=== PATIENT | female | born 1965 | race Caucasian/White ===

== ENCOUNTER 2022-11-14 05:52 | Observation (INO) ==
--- NOTE | 2022-10-23 13:15 | PAT Medication Instructions ---
Medication Instructions Date of Service October 23, 2022 Home Medications diclofenac potassium 50 mg oral powder packet ([place]ambia) 50 mg PO DAILY PRN Migraine Headache estradiol 0.01% (0.1 mg/gram) vaginal cream 1 appful vaginal 2XWK levothyroxine 125 mcg tablet 125 mcg PO QAM meloxicam 15 mg tablet 15 mg PO HS venlafaxine 75 mg capsule,extended release 24 hr 75 mg PO HS ASK your surgeon for instructions meloxicam 15 mg tablet 15 mg PO HS diclofenac potassium 50 mg oral powder packet ([place]) 50 mg PO DAILY PRN Migraine Headache DO NOT take the morning of surgery estradiol 0.01% (0.1 mg/gram) vaginal cream 1 appful vaginal 2XWK Take morning of surgery With a small sip of water, OTHERWISE NOTHING TO EAT OR DRINK AFTER MIDNIGHT: levothyroxine 125 mcg tablet 125 mcg PO QAM Take evening before surgery venlafaxine 75 mg capsule,extended release 24 hr 75 mg PO HS Other Notes If you have any questions please call us at [phone] or [phone] or [phone] or [phone]
--- NOTE | 2022-10-30 11:53 | Anesthesiology Consultation ---
Date of Service October 30, 2022 Assessment & Plan (1) Encounter for pre-operative examination: - COVID screening: Per assessment on 10/30: No known COVID-19 positive contacts or current COVID-19 related symptoms. Travel screen negative. At surgeon discretion if preop Covid testing being done. - PCP visit (10/27/22): "Patient doing well and healthy.. Reviewed EKG, chest xray, and bloodwork. Cleared for surgery.. Supraventricular tachycardia.. Continue to monitor. Stable" Chart Review Chart Review: Acceptable Risk for Surgery and Patient seen in Pre Admission Testing Teaching & Discussion Pre-Anesthesia Teaching/Discussion Notes: Instructed NPO after midnight before surgery,except medications with 15 cc of water. Medication instructions provided according to the PAT guidelines. History Surgery Operation Date: 11/14/22 08:25 Proposed Procedures p Bilateral Total Knee Arthroplasty - Arsen Kearney DO Height/Weight Height: 5 ft 2 in Weight: 80.3 kg Allergies Allergy/AdvReac Type Severity Reaction Status Date / Time No Known Allergies Allergy Verified 10/20/22 09:32 Medications Home Medications Medication Instructions Recorded Confirmed Last Taken diclofenac potassium 50 mg oral 50 mg PO DAILY PRN Migraine 10/20/22 10/20/22 Unknown powder packet (Cambia) Headache estradiol 0.01% (0.1 mg/gram) 1 appful vaginal 2XWK 10/20/22 10/20/22 Unknown vaginal cream levothyroxine 125 mcg tablet 125 mcg PO QAM 10/20/22 10/20/22 Unknown meloxicam 15 mg tablet 15 mg PO HS 10/20/22 10/20/22 Unknown venlafaxine 75 mg capsule,extended 75 mg PO HS 10/20/22 10/20/22 Unknown release 24 hr Past Medical History Medical History Acute angle-closure glaucoma s/p iridotomy (Had "holes" to help with pressure) 1977 Arthritis H/O supraventricular tachycardia Remote hx s/p cardiac workup, no recent issues/palpitations History of kidney stones No surgical intervention needed History of neuropathy Toes (improved with surgery) Hot flashes reason for venlafaxine Hypothyroidism Migraine Sleep apnea mild, no device Exercise / Class Metabolic Activity II 4-5 Yardwork/Stairs/Walk up hill (one FS (no CP, no SOB)) Past Family History Family History Other No family history of adverse response to anesthesia Past Surgical History Surgical History H/O total thyroidectomy d/t thyroid goiter [place], bilateral repaired History of appendectomy History of bunionectomy R/L foot History of colonoscopy History of dilatation and curettage [place] teeth removed Past Anesthesia History No Hx of Anesthesia Complications and No Family Hx of Anesthesia Complications History of PONV No Hx of PONV and Hx of Motion Sickness (occasional) Social History Smoking Status: Never smoker Do You Dip or Chew Tobacco: No Hx Alcohol Use: Yes Alcohol type: wine alcohol intake frequency: a few times a month Hx Substance Use: No substance use type: does not use Physical Exam Vital Signs VITALS BP 111/71 P 80 TEMP 99.4 SP02 95%RA RESP 16 PHYSICAL Full cervical extension range of motion. Full TMJ range of motion. TMD 4 finger breaths Mallampati Score 2 Dentition: intact, crown (molar) Lungs: clear throughout to auscultation Cardiac: regular rate and rhythm, no murmurs noted Spine: normal Carotid arteries: negative bruit Extremities: no LE edema Lab Results Anesthesia Preop Results Results Anesthesia Widget: PT 10.5 Seconds (9.0-12.0) 10/30/22 PTT 26.1 Seconds (21.0-31.0) 10/30/22 INR 1.0 (0.9-1.1) 10/30/22 HA1c 5.8 % (4.5-5.6) H 10/30/22 Urine Color Yellow 10/30/22 Urine Appearance Clear (Clear) 10/30/22 Urine pH 7.0 (4.5-7.5) 10/30/22 Urine Specific [place] 1.013 (1.000-1.030) 10/30/22 Urine Protein Negative (Negative) 10/30/22 Urine Glucose (UA) Negative (Negative) 10/30/22 Urine Ketones Negative (Negative) 10/30/22 Urine Blood Negative (Negative) 10/30/22 Urine Nitrite Negative (Negative) 10/30/22 Urine Bilirubin Negative (Negative) 10/30/22 Urine Urobilinogen Negative (Negative) 10/30/22 Urine Leukocyte Esterase Negative (Negative) 10/30/22 Blood Type B Positive 10/30/22 Antibody Screen NEGATIVE 10/30/22 Testing Laboratory Results 10/19/22 WBC 5.69 H/H 13.2/40.9 PLATELETS 273 SODIUM 138 POTASSIUM 3.7 CHLORIDE 108 CO2 28.0 BUN 20.0 CREATININE 0.79 GLUCOSE 84 Electrocardiogram Date: 10/19/22 Sinus rhythm at 64 bpm. Possible LAE. Nonspecific ST/T wave abnormality. Chest X-Ray Date: 10/19/22 Top normal heart size with mildly tortuous thoracic aorta. Mild thoracic spine degenerative disc disease. No acute findings. Stress Test Date: 05/23/21 LVEF 65%. Exercise stress EKG is positive for ischemia, though at good workload of 10 METS. This has low sensitivity. SPECT perfusion imaging demonstrates no evidence of ischemia or infarct. PCP stress test review (05/25/21): "Stress test was normal. No concerns at this time." COVID-19 Risk Screen Screening Information COVID-19 Screen Date: 10/30/22 Exposure 21 Days Family/Household +COVID Last 21 Days: No Exposure 10 Days Any COVID Exposure Last 10 Days: No Symptoms Last 10 Days Experienced COVID Sx Last 10 Days: No + COVID 0-90 Days COVID + in Last 0-90 Days: No
--- NOTE | 2022-10-30 13:22 | History & Physical Report ---
Date of Service October 30, 2022 date of surgery: 11/14/22 Procedure: Bilateral Total Knee Arthroplasty Surgeon: Arsen Kearney Assessment & Plan (1) Degenerative arthritis of knee, bilateral: Plan: Risk and benefits of the procedure were discussed in detail, she would like to proceed with bilateral total knee replacements. Will place on Eliquis x1 month postop for DVT prophylaxis. Would recommend discharge home with home health physical therapy x2 to 3 weeks. We will follow-up in the office 2 weeks after surgery sooner if any problems. This point time is failed conservative measures like proceed with total knee replacements The risks and benefits have been discussed including, but not limited to, risk of infection, nerve injury, stiffness, loss of motion, failure to improve, etc. Reasonable outcomes and options of treatment were discussed. An explanation of appropriate alternatives to the procedure that may be advantageous were discussed and their risks and benefits, as well as the risks and benefits of not proceeding with treatment. I offered to answer any additional inquiries concerning the treatment involved. All the patient's questions were answered. The patient is agreeable, understanding of the treatment plan and alternatives, and wishes to proceed with the treatment plan. History of Present Illness Chief Complaint: bilateral knee pain Primary Care Provider: Floresita Pillai is a pleasant 57-year-old female who presents today for preop evaluation prior to bilateral total knee replacements. She states she been having pain in both knees for over 10 years. She undergone previous viscosupplementation as well as corticosteroid injections with only mild relief. She tried oral anti- inflammatories as well as Tylenol as well. She has complaints of pain decreased range of motion and instability. X-rays were reviewed which show advanced degenerative changes of both knees. This point time is failed conservative measures and like to proceed with bilateral total knee replacements Allergies Allergy/AdvReac Type Severity Reaction Status Date / Time No Known Allergies Allergy Verified 10/20/22 09:32 Home Medications Medication Instructions Recorded Confirmed Type diclofenac potassium 50 mg oral 50 mg PO DAILY PRN Migraine 10/20/22 10/20/22 History powder packet (Cambia) Headache estradiol 0.01% (0.1 mg/gram) 1 appful vaginal 2XWK 10/20/22 10/20/22 History vaginal cream levothyroxine 125 mcg tablet 125 mcg PO QAM 10/20/22 10/20/22 History meloxicam 15 mg tablet 15 mg PO HS 10/20/22 10/20/22 History venlafaxine 75 mg capsule,extended 75 mg PO HS 10/20/22 10/20/22 History release 24 hr Past Med/Surg History Medical History Acute angle-closure glaucoma at age had "holes" to help with pressure (1976) Arthritis H/O supraventricular tachycardia "with exercise" has not happened for a while (no active cards) History of kidney stones No surgical intervention needed History of neuropathy Toes (improved with surgery) Hot flashes reason for venlafaxine Hypothyroidism Migraine Sleep apnea mild, no device Surgical History H/O total thyroidectomy d/t thyroid goiter [place], bilateral repaired History of appendectomy History of bunionectomy R/L foot History of colonoscopy History of dilatation and curettage [place] teeth removed Family History Other No family history of adverse response to anesthesia Social History Smoking Status: Never smoker Second Hand Exposure: Yes (as a child); Do You Dip or Chew Tobacco: No; Hx Alcohol Use: Yes Alcohol type: wine Hx Substance Use: No Preferred Language: Polish Broom Maker Required: No Beliefs That Will Affect Care: None Current Living Situation: Spouse Feels Safe at Home: Yes Assistive Devices: Glasses Review of Systems Review of Systems: All systems reviewed & are unremarkable except as noted in HPI & below Constitutional: no fever, no chills and no sweats Respiratory: no cough and no dyspnea Cardiovascular: no chest pain, no dyspnea and no orthopnea Gastrointestinal: no abdominal pain, no nausea and no vomiting Musculoskeletal: as per Subjective / HPI Physical Exam Constitutional: WD/WN, vitals as above no acute distress Respiratory: normal respiratory effort, lungs clear to auscultation no respiratory distress, no labored breathing and does not use accessory muscles Cardiovascular: RRR, no murmur, no edema Gastrointestinal (Abdomen): normal bowel sounds, soft, nontender, no hepatosplenomegaly Musculoskeletal: Bilateral knee Physical exam Overall patient has varus alignment bilaterally, there is no atrophy or ecchymosis noted, +1 suprapatellar effusion in both knees, positive tenderness to both medial and lateral joint lines right knee, more medial sided tenderness to the left knee. negative patellar apprehension, positive crepitation noted to both knees with active ROM. bilateral knees stable to valgus and varus stress, alessio negative, posterior drawer negative. Range of motion right knee 0/3/110, left knee 0/3/115. lower extremities are neurovascularly intact, calf soft and non tender, DP pulse +2 bilaterally. Results & Data Results & Data Diagnostic Findings Bilateral Knee X-ray: bilateral knee series confirm advanced degenerative changes bilateral knees, greatest medial compartments and patellofemoral joints, showing joint space narrowing, osteophyte formation and subchondral sclerosis. no acute bony pathology noted.
[2022-11-14] MEDS ORDERED: TRANEXAMIC ACID 1,000 MG **IV Pre-op IV SCH (06:00)
[2022-11-14] MEDS ORDERED: ROPIVACAINE 0.5% HCL/PF 150 MG, BUPIVACAINE 0.75% MPF 20 ML, EPINEPHrine 30MG/30ML (OR ... INSTIL SCH (06:00)
[2022-11-14] MEDS ORDERED: METOCLOPRAMIDE HCL 10 MG TABLET PO SCH (06:00)
[2022-11-14] MEDS ORDERED: ceFAZolin 2000MG 2,000 MG/15 ML SYR IV SCH (06:00)
[2022-11-14] MEDS ORDERED: CeleBREX 200 MG CAP PO SCH (06:00)
[2022-11-14] MEDS ORDERED: TRANEXAMIC ACID 1,000 MG **IV Intra-op IV SCH (06:00)
[2022-11-14] MEDS ORDERED: LR 500ML BOLUS, THEN 15ML/HR IV SCH (06:00)
[2022-11-14] MEDS ORDERED: ACETAMINOPHEN 500 MG TAB PO SCH (06:00)
[2022-11-14] MEDS ORDERED: GABAPENTIN 600 MG DOSE PO SCH (06:00)
[2022-11-14] MEDS ORDERED: FAMOTIDINE 20 MG TAB PO SCH (06:00)
[2022-11-14] MEDS ORDERED: dexAMETHasone 4 MG TAB PO SCH (06:00)
[2022-11-14] MEDS ORDERED: ORTHO JOINT ANESTHETIC ONE (07:03)
--- NOTE | 2022-11-14 07:11 | History & Physical Bridge Note ---
Date of Service November 14, 2022 History & Physical Bridge Note I have examined the patient, reviewed the History & Physical and in the interval since the performance of the History & Physical I have noted the following changes of clinical significance: no changes noted
[2022-11-14] MEDS ORDERED: LIDOCAINE 2% 2 ML VIAL/AMP(20MG/ML) INFIL ONE (07:15)
[2022-11-14] MEDS ORDERED: PROPOFOL IV EMULSION 10 MG/ML 20 ML VIAL IV ONE ×2 (07:15→10:17)
[2022-11-14] MEDS ORDERED: MIDAZOLAM HCL 1 MG/ML 2ML VIAL ONE (07:15)
[2022-11-14] MEDS ORDERED: fentaNYL citrate PF 100 MCG/2 ML VIAL ONE (07:16)
[2022-11-14] MEDS ORDERED: BUPIVACAINE 0.25% PF 30 ML VIAL ONE (07:18)
[2022-11-14] MEDS ORDERED: EPINEPHrine INJ 1 MG/ML AMP ONE (07:18)
[2022-11-14] MEDS ORDERED: DEXAMETHASONE SOD INJ 4 MG/ML VIAL ONE (07:18)
[2022-11-14] MEDS ORDERED: BUPIVACAINE 0.5 % 5 MG/1 ML PF 10ML VIAL ONE (07:19)
[2022-11-14] MEDS ORDERED: fentaNYL citrate PF 100 MCG/2 ML VIAL IV PRN (07:57)
[2022-11-14] MEDS ORDERED: ATROPINE SULFATE 0.1 MG/ML 10ML SYR IV PRN (07:57)
[2022-11-14] MEDS ORDERED: ONDANSETRON INJ 2 MG/ML 2 ML VIAL IV PRN ×2 (07:57→12:38)
[2022-11-14] MEDS ORDERED: ePHEDrine sulfate 50 MG/ML AMP IV PRN (07:57)
[2022-11-14] MEDS ORDERED: ceFAZolin 2000MG 2,000 MG/15 ML SYR IV ONE (09:48)
[2022-11-14] MEDS ORDERED: ePHEDrine sulfate 50 MG/ML AMP ONE (10:17)
--- NOTE | 2022-11-14 10:44 | Operative Report ---
Post Operative Report Pre & Post Diagnosis Operation Date: 11/14/22 08:10 Pre-Op Diagnosis: Degenerative arthritis of knee, bilateral Post-Op Diagnosis: Degenerative arthritis of knee, bilateral I identified the patient and participated in the time-out.: Yes Procedure Operation Date: 11/14/22 08:10 Actual Procedures p Bilateral Total Knee Arthroplasty utilizing [employer] persona right size 6 narrow femur tibia D poly 11 patella 26 round left knee size 6 narrow femur tibia D poly 10 medial constrained patella 28 lisa- Arsen Kearney DO Surgeon Arsen Kearney DO Cold Meat Cook Luis CRUZ Estimated Blood Loss 10 Findings Consistent with Post-Op Diagnosis Patient presents with severe end-stage tricompartmental degenerative joint disease bilateral knees eburnated [id number] marginal osteophytes subchondral sclerosis varus alignment marked large effusion Specimens Bone and cartilage Drains Medium bore Hemovac Anesthesia Type MAC Spinal Regional Complications none Disposition Accompanied Patient To Recovery: No Disposition: Recovery Room Indications Patient presents with severe end-stage tricompartmental degenerative joint disease bilateral knees for bilateral total knee arthroplasty patient failed attempted conservative manage including corticosteroid injection viscosupplementation relative rest activity modification patient presents with her for bilateral total knee arthroplasty Description of Procedure After proper prepping and draping of the bilateral lower extremities, an anterior midline incision was made over the region of the extensor extensor mechanism of the left knee. After meticulous hemostasis was obtained and maintained in subcutaneous tissues a medial parapatellar incision was made The patella was subluxed lateralward the medial lateral gutter were cleaned from any hypertrophic synovitis and scar tissue of the distal femoral block was placed and the distal femoral osteotomy cut was made subsequently the chamfers anterior and posterior osteotomy cuts were made utilizing the 4-in-1 block the tibia was subsequently subluxed anteriorward medial and ateral meniscal remnants were excised in their entirety remnants of the anterior and posterior cruciate ligaments were excised in their entirety excellent exposure of the proximal tibia was obtained the tibial osteotomy guide was placed on the proximal tibial osteotomy cut was made once again the knee was irrigated with copious amounts of sterile saline solution the patella was subsequently everted lateralward thickened scar tissue around the patella was removed the patella was subsequently cut utilizing a freehand technique and was drilled prepared for final preparation and placement of patella socially flexion-extension gaps were checked and the equal and symmetric trials were placed to the appropriate femoral and tibial trials with poly-spacer being placed for equal flexion and extension gaps and full range of motion including extension to 0 and flexion to 140 the trial components after having been taken to recovery range of motion was subsequently removed meticulous hemostasis was obtained and maintained subsequently a knee block injection of joint cocktail including ropivacaine 0.5% 150 mg. Bupivacaine 0.5% epinephrine 1-200,030 mL's toradol 30 mg dexamethasone 4 mg ketamine 10 mg clonidine 100 micrograms normal saline solution 30 mg was infiltrated into the soft tissues of the posterior knee medial lateral gutters and periosteal synovium special attention was paid to protect neurovascular structures at all times subsequently trial components having been removed the knee was irrigated with sterile saline solution. debris was removed the proximal tibia was subsequently prepared and was made ready for the placement of the tibial component tibial component was also cemented and tamped into position the femoral component was subsequently placed and cemented in the position the patellar component was subsequently cemented in position because hemostasis once again obtained and maintained wound having been thoroughly irrigated with debridement and debridement lavage was performed as well as a medial parapatellar incision closed with #1 Vicryl in interrupted fashion subcutaneous was closed with #2 Vicryl skin was closed with skin clips Next, an anterior midline incision was made over the region of the extensor extensor mechanism of the right knee. After meticulous hemostasis was obtained and maintained in subcutaneous tissues a medial parapatellar incision was made The patella was subluxed lateralward the medial lateral gutter were cleaned from any hypertrophic synovitis and scar tissue of the distal femoral block was placed and the distal femoral osteotomy cut was made subsequently the chamfers anterior and posterior osteotomy cuts were made utilizing the 4-in-1 block the tibia was subsequently subluxed anteriorward medial and ateral meniscal remnants were excised in their entirety remnants of the anterior and posterior cruciate ligaments were excised in their entirety excellent exposure of the proximal tibia was obtained the tibial osteotomy guide was placed on the proximal tibial osteotomy cut was made once again the knee was irrigated with copious amounts of sterile saline solution the patella was subsequently everted lateralward thickened scar tissue around the patella was removed the patella was subsequently cut utilizing a freehand technique and was drilled prepared for final preparation and placement of patella socially flexion-extension gaps were checked and the equal and symmetric trials were placed to the appropriate femoral and tibial trials with poly-spacer being placed for equal flexion and extension gaps and full range of motion including extension to 0 and flexion to 140 the trial components after having been taken to recovery range of motion was subsequently removed meticulous hemostasis was obtained and maintained subsequently a knee block injection of joint cocktail including ropivacaine 0.5% 150 mg. Bupivacaine 0.5% epinephrine 1-200,030 mL's toradol 30 mg dexamethasone 4 mg ketamine 10 mg clonidine 100 micrograms normal saline solution 30 mg was infiltrated into the soft tissues of the posterior knee medial lateral gutters and periosteal synovium special attention was paid to protect neurovascular structures at all times subsequently trial components having been removed the knee was irrigated with sterile saline solution. debris was removed the proximal tibia was subsequently prepared and was made ready for the placement of the tibial component tibial component was also cemented and tamped into position the femoral component was subsequently placed and cemented in the position the patellar component was subsequently cemented in position because hemostasis once again obtained and maintained wound having been thoroughly irrigated with debridement and debridement lavage was performed as well as a medial parapatellar incision closed with #1 Vicryl in interrupted fashion subcutaneous was closed with #2 Vicryl skin was closed with skin clips.. PA-C was necessary for prepping and drapping as well as wound closure of deep fascia Sub cutaneous tissue and skin and was necessary for the case. A sterile compressive dressings were placed, patient was taken to recovery in stable condition of report dictated by Caio I attest to the content of the Intraoperative Record and any orders documented therein. Any exceptions are noted below.Due to the complex nature of the procedure, the entire surgery was performed with the operational assistance of Luis CRUZ. The habilitation assistant, under direct supervision, was involved in the actual performance of all aspects of the surgical procedure including hemostasis, tissue retraction and incision, instrument management, patient positioning, and wound closure. I attest to the content of the Intraoperative Record and any orders documented therein. Any exceptions are noted below.
--- NOTE | 2022-11-14 11:57 | XRay Report ---
LEFT KNEE 2 VIEWS History: Left total knee arthroplasty. Degenerative arthritis. Postop. FINDINGS: The patient is status post a left total knee arthroplasty. The hardware is intact. No fract ure or dislocation. Surgical drains are in place. IMPRESSION: Left total knee arthroplasty. No evidence for hardware complication. ACT 112: Negative or not required by law. Electronically signed by: Renny Wallace M.D. 11/14/2022 11:56 AM
--- NOTE | 2022-11-14 11:58 | XRay Report ---
RIGHT KNEE 2 VIEWS History: Right total knee arthroplasty. Degenerative arthritis. Postop. FINDINGS: The patient is status post a right total knee arthroplasty. The hardware is intact. No frac ture or dislocation. Surgical drains are in place. IMPRESSION: Right total knee arthroplasty. No evidence for hardware complication. ACT 112: Negative or not required by law. Electronically signed by: Renny Wallace M.D. 11/14/2022 11:57 AM
--- NOTE | 2022-11-14 12:14 | Anesthesiology Progress Note ---
Date of Service November 14, 2022 Anesthesia Post Procedure Vital Signs Vital Signs: Temp Pulse Pulse Resp BP BP Pulse Ox 11/14/22 12:05 85 20 114/61 95 11/14/22 11:55 36.4 C L 85 22 104/75 96 11/14/22 11:45 84 19 109/71 96 11/14/22 11:35 89 17 127/82 97 11/14/22 11:29 36.5 C 88 12 117/63 99 11/14/22 07:06 36.4 C L 63 20 133/71 95 O2 Del Method O2 Flow Rate 11/14/22 12:05 Room Air 11/14/22 11:55 Room Air 11/14/22 11:45 Room Air 11/14/22 11:35 Room Air 11/14/22 11:29 Oxymask 7 11/14/22 07:06 Room Air Transfer of Care Handoff Completed per policy Notes Mental Status: alert / awake / arousable Patient Amnestic to Procedure: Yes Nausea / Vomiting: adequately controlled Pain: adequately controlled Airway Patency, RR, SpO2: stable & adequate BP & HR: stable & adequate Hydration State: stable & adequate Neuraxial Anesthesia: was administered and sensory block is resolving Anesthetic Complications: no major complications apparent and Pt Satisfied with anesthetic care
[2022-11-14] MEDS ORDERED: MAGNESIUM HYDROXIDE SUSP 30 ML UDC PO PRN (12:38)
[2022-11-14] MEDS ORDERED: HYDROmorphone INJ 0.5 MG/0.5 ML SYR IV PRN (12:38)
[2022-11-14] MEDS ORDERED: diphenhydrAMINE 50 MG/ML VIAL IV PRN (12:38)
[2022-11-14] MEDS ORDERED: KETOROLAC TROMETHAMINE 15 MG/ML VIAL IV PRN (12:38)
[2022-11-14] MEDS ORDERED: bisacodyL 10 MG SUPP PR PRN (12:38)
[2022-11-14] MEDS ORDERED: NALOXONE HCL 0.4 MG/1 ML VIAL/CARP IV PRN (12:38)
[2022-11-14] MEDS: SODIUM CHLORIDE 0.9% 1000ML 1,000 ML IV SCH ×2 (12:40→23:00)
[2022-11-14] MEDS: oxyCODONE HCL IR 5 MG TAB (IMMEDIATE RELEASE) PO PRN ×2 (12:52→19:27)
[2022-11-14] MEDS: ACETAMINOPHEN 500 MG TAB PO SCH ×2 (13:02→20:51)
[2022-11-14] MEDS: ceFAZolin 2000MG 2,000 MG/15 ML SYR IV SCH (17:39)
[2022-11-14] MEDS: DOCUSATE SODIUM 100 MG CAP PO SCH (20:51)
[2022-11-14] MEDS ORDERED: VENLAFAXINE HCL XR 75 MG CAPXR PO SCH (21:00)
[2022-11-14] MEDS ORDERED: SENNA 8.6 MG TAB PO SCH (21:00)
[2022-11-15] MEDS: ceFAZolin 2000MG 2,000 MG/15 ML SYR IV SCH (01:13)
[2022-11-15] MEDS: oxyCODONE HCL IR 5 MG TAB (IMMEDIATE RELEASE) PO PRN ×3 (01:21→11:54)
[2022-11-15] MEDS: ACETAMINOPHEN 500 MG TAB PO SCH (05:03)
[2022-11-15 06:11] LABS: Hematocrit (blood only) 31.8 % (37.0-47.0); Hemoglobin 10.8 g/dl (12.0-16.0); Mean Corpuscular Volume 85.3 fL (80.0-100.0); Mean Platelet Volume 10.2 fL (9.4-12.4); Platelet Count 276 K/uL (130-400); RDW Coefficient of Variation 13.4 % (11.5-14.5); Red Blood Count 3.73 M/uL (4.20-5.40); White Blood Count 13.52 K/ul (4.8-10.8)
[2022-11-15 06:26] LABS: Potassium 3.9 mmol/L (3.5-5.1)
[2022-11-15 06:27] LABS: Calcium 7.9 mg/dl (8.6-10.3); Est GFR (African American) 94.9 ml/min; Est GFR (Non-African American) 81.8 ml/min
[2022-11-15] MEDS ORDERED: LEVOTHYROXINE SODIUM 125 MCG TABLET PO SCH (06:30)
--- NOTE | 2022-11-15 08:01 | Orthopedic Progress Note ---
Date of Service November 15, 2022 Assessment & Plan (1) Degenerative arthritis of knee, bilateral: Plan: Postop day 1 status post bilateral total knee arthroplasty. PT/OT protocols. Weightbearing as tolerated. DVT prophylaxis-Eliquis 2.5 mg p.o. twice daily, LIDIA José. Pain management as written. DC planning-patient planning for home health services versus outpatient PT upon discharge. Addendum: Recheck patient after therapy this morning. She did well with therapy. Her pain is controlled. Plan for discharge home today. Admission and Anticipated Discharge Date Admission Date: November 14, 2022 Subjective Postop day 1 Patient sitting up in bed awake and alert. No complaints this morning. Pain is controlled. Feeling well overall. Physical Exam Physical Exam: Dressings bilaterally are clean, dry, and intact. Calves are soft nontender. Neurovascular intact. Toes are mobile. She has good dorsiflexion and plantarflexion of both feet and ankles at this time. Hemovac drainage 100 cc from the right knee and 50 cc from the left knee from the previous shift. Results & Data Vital Signs (Past 12 Hours) Vital Signs Temp Pulse Resp BP BP Pulse Ox O2 Del Method 11/15/22 07:10 36.9 C 63 18 96/62 L 96 Room Air 11/15/22 02:34 36.5 C 69 18 127/75 97 Room Air 11/14/22 23:13 36.9 C 65 16 128/67 98 Room Air Laboratory Results Laboratory Results WBC 13.52 K/ul (4.8-10.8) H 11/15/22 05:39 RBC 3.73 M/uL (4.20-5.40) L 11/15/22 05:39 Hgb 10.8 g/dl (12.0-16.0) L 11/15/22 05:39 Hct 31.8 % (37.0-47.0) L 11/15/22 05:39 MCV 85.3 fL (80.0-100.0) 11/15/22 05:39 MCH 29.0 pg (25.0-34.0) 11/15/22 05:39 MCHC 34.0 g/dL (32.0-36.0) 11/15/22 05:39 RDW Std Deviation 42.0 fL (36.4-46.3) 11/15/22 05:39 RDW Coeff of María 13.4 % (11.5-14.5) 11/15/22 05:39 Plt Count 276 K/uL (130-400) 11/15/22 05:39 MPV 10.2 fL (9.4-12.4) 11/15/22 05:39 Sodium 136 mmol/L (136-145) 11/15/22 05:39 Potassium 3.9 mmol/L (3.5-5.1) 11/15/22 05:39 Chloride 105 mmol/L (98-107) 11/15/22 05:39 Carbon Dioxide 23 mmol/L (21-32) 11/15/22 05:39 Anion Gap 8 (3-11) 11/15/22 05:39 BUN 16 mg/dl (6-23) 11/15/22 05:39 Creatinine 0.80 mg/dl (0.6-1.2) 11/15/22 05:39 Est Cr Clr Drug Dosing 76.0 ml/min 11/15/22 05:39 Est GFR ( Amer) 94.9 ml/min 11/15/22 05:39 Est GFR (Non-Af Amer) 81.8 ml/min 11/15/22 05:39 BUN/Creatinine Ratio 20.0 (10-20) 11/15/22 05:39 Glucose 101 mg/dl (70-99(Fasting)) H 11/15/22 05:39 Calcium 7.9 mg/dl (8.6-10.3) L 11/15/22 05:39 SARS-CoV-2, RNA, NAAT NEGATIVE (NEGATIVE) 11/14/22 Unknown Impressions Knee X-Ray 11/14/22 11:34 RIGHT KNEE 2 VIEWS History: Right total knee arthroplasty. Degenerative arthritis. Postop. FINDINGS: The patient is status post a right total knee arthroplasty. The hardware is intact. No fracture or dislocation. Surgical drains are in place. IMPRESSION: Right total knee arthroplasty. No evidence for hardware complication. ACT 112: Negative or not required by law. Electronically signed by: Renny Wallace M.D. 11/14/2022 11:57 AM LEFT KNEE 2 VIEWS History: Left total knee arthroplasty. Degenerative arthritis. Postop. FINDINGS: The patient is status post a left total knee arthroplasty. The hardware is intact. No fracture or dislocation. Surgical drains are in place. IMPRESSION: Left total knee arthroplasty. No evidence for hardware complication. ACT 112: Negative or not required by law. Electronically signed by: Renny Wallace M.D. 11/14/2022 11:56 AM
[2022-11-15] MEDS: DOCUSATE SODIUM 100 MG CAP PO SCH (08:08)
[2022-11-15] MEDS ORDERED: MULTIVITAMIN TAB PO SCH (09:00)
[2022-11-15] MEDS ORDERED: APIXABAN 2.5 MG TAB PO SCH (09:00)
--- NOTE | 2022-11-17 11:38 | Discharge Summary ---
Date of Service November 17, 2022 Admission HPI Per Admitting Provider Freya is a pleasant 57-year-old female who presents today for preop evaluation prior to bilateral total knee replacements. She states she been having pain in both knees for over 10 years. She undergone previous viscosupplementation as well as corticosteroid injections with only mild relief. She tried oral anti- inflammatories as well as Tylenol as well. She has complaints of pain decreased range of motion and instability. X-rays were reviewed which show advanced degenerative changes of both knees. This point time is failed conservative measures and like to proceed with bilateral total knee replacements Admission Exam Per Admitting Provider Physical Exam Constitutional: WD/WN, vitals as above no acute distress Respiratory: normal respiratory effort, lungs clear to auscultation no respiratory distress, no labored breathing and does not use accessory muscles Cardiovascular: RRR, no murmur, no edema Gastrointestinal (Abdomen): normal bowel sounds, soft, nontender, no hepatosplenomegaly Musculoskeletal: Bilateral knee Physical exam Overall patient has varus alignment bilaterally, there is no atrophy or ecchymosis noted, +1 suprapatellar effusion in both knees, positive tenderness to both medial and lateral joint lines right knee, more medial sided tenderness to the left knee. negative patellar apprehension, positive crepitation noted to both knees with active ROM. bilateral knees stable to valgus and varus stress, alessio negative, posterior drawer negative. Range of motion right knee 0/3/110, left knee 0/3/115. lower extremities are neurovascularly intact, calf soft and non tender, DP pulse +2 bilaterally. Principal Diagnosis DJD bilateral knees Discharge Data Allergies Allergy/AdvReac Type Severity Reaction Status Date / Time No Known Allergies Allergy Verified 11/14/22 06:35 Procedures Performed Operation Date: 11/14/22 08:10 Actual Procedures p Bilateral Total Knee Arthroplasty(Bilateral) - Arsen Kearney DO Ordered Studies 11/14/22 05:00 US - OR guided needle placemen Routine Hospital Course (1) Degenerative arthritis of knee, bilateral: Patient:FREYA DERAS Admit Date:11/14/22 MR#:[id number] Att Phy:Arsen Kearney,D.O. Acct ID:[id number] Maryann Phy:Floresita Roberts MD Date:1965 Kwasi Carr: Age:57 Location:3E Sex:F Room/Bed:E302-1 cc: ~ *NOTICE TO RECEIVING CONSTITUTION PARTY/AGENCY This information is strictly Confidential and protected under [place] law. [place] law prohibits you from making any further disclosure of this information unless further disclosure is expressly permitted by the written consent of the person to whom it pertains or is authorized by law. A general authorization for the release of medical or other information is not sufficient for this purpose. Hospital accepts no responsibility if the information is made available to any other person, INCLUDING THE PATIENT. Date of Service November 15, 2022 Assessment & Plan (1) Degenerative arthritis of knee, bilateral: Plan: Postop day 1 status post bilateral total knee arthroplasty. PT/OT protocols. Weightbearing as tolerated. DVT prophylaxis-Eliquis 2.5 mg p.o. twice daily, SCDs, LIDIA briseno. Pain management as written. DC planning-patient planning for home health services versus outpatient PT upon discharge. Addendum: Recheck patient after therapy this morning. She did well with therapy. Her pain is controlled. Plan for discharge home today. Admission and Anticipated Discharge Date Admission Date: November 14, 2022 Subjective Postop day 1 Patient sitting up in bed awake and alert. No complaints this morning. Pain is controlled. Feeling well overall. Physical Exam Physical Exam: Dressings bilaterally are clean, dry, and intact. Calves are soft nontender. Neurovascular intact. Toes are mobile. She has good dorsiflexion and plantarflexion of both feet and ankles at this time. Hemovac drainage 100 cc from the right knee and 50 cc from the left knee from the previous shift. Results & Data Vital Signs (Past 12 Hours) Vital Signs Temp Pulse Resp BP BP Pulse Ox O2 Del Method 11/15/22 07:10 36.9 C 63 18 96/62 L 96 Room Air 11/15/22 02:34 36.5 C 69 18 127/75 97 Room Air 11/14/22 23:13 36.9 C 65 16 128/67 98 Room Air Laboratory Results Laboratory Results WBC 13.52 K/ul (4.8-10.8) H 11/15/22 05:39 RBC 3.73 M/uL (4.20-5.40) L 11/15/22 05:39 D Hgb 10.8 g/dl (12.0-16.0) L 11/15/22 05:39 Hct 31.8 % (37.0-47.0) L 11/15/22 05:39 MCV 85.3 fL (80.0-100.0) 11/15/22 05:39 MCH 29.0 pg (25.0-34.0) 11/15/22 05:39 MCHC 34.0 g/dL (32.0-36.0) 11/15/22 05:39 RDW Std Deviation 42.0 fL (36.4-46.3) 11/15/22 05:39 RDW Coeff of María 13.4 % (11.5-14.5) 11/15/22 05:39 Plt Count 276 K/uL (130-400) 11/15/22 05:39 MPV 10.2 fL (9.4-12.4) 11/15/22 05:39 Sodium 136 mmol/L (136-145) 11/15/22 05:39 Potassium 3.9 mmol/L (3.5-5.1) 11/15/22 05:39 Chloride 105 mmol/L (98-107) 11/15/22 05:39 Carbon Dioxide 23 mmol/L (21-32) 11/15/22 05:39 Anion Gap 8 (3-11) 11/15/22 05:39 BUN 16 mg/dl (6-23) 11/15/22 05:39 Creatinine 0.80 mg/dl (0.6-1.2) 11/15/22 05:39 Est Cr Clr Drug Dosing 76.0 ml/min 11/15/22 05:39 Est GFR ( Amer) 94.9 ml/min 11/15/22 05:39 Est GFR (Non-Af Amer) 81.8 ml/min 11/15/22 05:39 BUN/Creatinine Ratio 20.0 (10-20) 11/15/22 05:39 Glucose 101 mg/dl (70-99(Fasting)) H 11/15/22 05:39 Calcium 7.9 mg/dl (8.6-10.3) L 11/15/22 05:39 SARS-CoV-2, RNA, NAAT NEGATIVE (NEGATIVE) 11/14/22 Unknown Impressions Knee X-Ray 11/14/22 11:34 RIGHT KNEE 2 VIEWS History: Right total knee arthroplasty. Degenerative arthritis. Postop. FINDINGS: The patient is status post a right total knee arthroplasty. The hardware is intact. No fracture or dislocation. Surgical drains are in place. IMPRESSION: Right total knee arthroplasty. No evidence for hardware complication. ACT 112: Negative or not required by law. Electronically signed by: Renny Wallace M.D. 11/14/2022 11:57 AM LEFT KNEE 2 VIEWS History: Left total knee arthroplasty. Degenerative arthritis. Postop. FINDINGS: The patient is status post a left total knee arthroplasty. The hardware is intact. No fracture or dislocation. Surgical drains are in place. IMPRESSION: Left total knee arthroplasty. No evidence for hardware complication. ACT 112: Negative or not required by law. Electronically signed by: Renny Wallace M.D. 11/14/2022 11:56 AM Signed By: <Electronically signed by Luis Fagan MD> 11/16/22 0708 <Electronically signed by Luis Mak PA-C> 11/15/22 0804 <Electronically signed by Fan Mccoy PA-C> 11/15/22 1232 Total Time Total Time Spent Total Time Spent (In Minutes): 5 Discharge Plan Discharge Items Patient Disposition: Home - Home Health Services Reason For Visit: Bilateral Knee Osteoarthritis Discharge Diagnosis: Bilateral Knee Osteoarthritis Activity: Per Instructions section Weightbearing: Full weightbearing Weightbearing Comment: as tolerated with walker Non-emergency contact: Surgeon Call non-emergency contact if: you have any medication questions, your pain is not controlled, your temperature is above 101.5, your wound has increased redness and your wound has increased drainage Follow-up/Referrals: Arsen Kearney DO [Surgeon] - (Follow up with Dr Kearney or his PA in 2 weeks from the day of surgery for your first post operative visit. ) Floresita Roberts M.D. [Primary Care Provider] - Diet: Regular Addtl Attending Provider Instructions: ACTIVITY RECOMMENDATIONS: SELF CARE INSTRUCTIONS AFTER TOTAL KNEE REPLACEMENT A. You may need to continue a physical therapy program after discharge from the hospital. There are several options available to you. Your doctor will assist you in selecting the best one for you. 1. An out-patient facility 2 to 3 times a week for therapy or home therapy. 2. Continue working on all exercises taught to you in the hospital. Your goals should be to increase bending of your knee to 90 degrees and beyond and to fully straighten your knee. B. You may progress at your own pace from walking with a walker or crutches to a cane; then to no assistive devices. C. Make walking a part of your daily routine. Be up as much as comfortable with rest periods throughout the day. Rest with leg elevation is very important. Use the ice wrap frequently for the first 3-4 weeks. D. There are no restrictions on activities. You may ride in a car, shop, participate in sawmill equipment operator and all social activities. E. Wear the long elastic stockings (LIDIA hose) 20 hours a day for 2 weeks after surgery. They can be removed several times a day for laundering and for a bath. F. You may shower, no tub baths until cleared by your doctor. SPECIAL CARE INSTRUCTIONS: VERY IMPORTANT TO READ AND REVIEW A. There are a few signs you need to watch for after you are home. Call [facility] if you notice any of the followin. Increased severe knee pain. Some pain is expected especially when you exercise. 2. Increased swelling in your leg or knee; pain or swelling of the calf muscle in either lower leg. 3. Any fluid drainage from the incision. 4. Shortness of breath or chest pain. B. Please call [facility] at if you have any concerns or questions about your operation or recovery. The doctor or his nurse will return your call promptly. C. You must take antibiotics before dental work, bladder, bowel or other surgery. Your doctor will provide you with a permanent care to carry describing this precaution. IMPORTANT: * REMEMBER TO TAKE ELIQUIS , 2.5 MG, TWICE DAILY FOR 4 WEEKS UNLESS OTHERWISE DIRECTED. THIS IS YOUR BLOOD THINNER. * CALL IF INCREASED PAIN, REDNESS, DRAINAGE OR FEVER GREATER THAT 101. * WEAR LIDIA HOSE 20 HOURS PER DAY FOR 2 WEEKS. * HARRY Dressing - This is a large suction dressing covering your incision. This will help pull any excess drainage from the wound and allow your incision to heal properly. You may shower with this if you can keep the unit outside of the shower. If any bleeding or leakage is noted please call your doctor's office. This will remain on your incision for 7 days and then should be removed. This can be done yourself or by the home nursing staff if applicable. The entire unit is disposable once removed. Once removed, keep incision clean and dry. If redness or drainage is noted, please call your surgeon. . * After your Harry dressings are removed, follow these wound care instructions. DERMABOND Prineo- This is a mesh tape dressing that is covered with glue. It should remain in place until the incision is properly healed, usually 10-14 days. This dressing is designed to naturally slough off. You may trim the excess mesh tape as it peels off. Incision may be briefly wet in a shower. Dry immediately by blotting with a clean, dry towel. Do not bath or swim until instructed by your doctor. Do not scratch, rub, or pick at the dressing. Do not apply any topical ointments or lotions until dressing is completely removed and/or instructed by your doctor. There may be a small piece of suture material at one end of your incision. Do not pull or trim this. If it is bothersome or catching on clothing, you may co pavreen it with a band-aid. FOLLOW UP VISIT: If appointment is not already scheduled: Please call [facility] to make a follow-up appointment for 2 weeks after your surgery at . Stand-Alone Forms: My [facility] [employer], Smoking Cessation Medications and DC Order Prescriptions: New acetaminophen [Tylenol Extra Strength] 500 mg Tablet 1,000 mg PO Q8 14 Days Qty: 84 0RF Eliquis 2.5 mg Tablet 2.5 mg PO BID Qty: 60 0RF oxycodone 5 mg Tablet 5 - 10 mg PO .Q4h-6h MDD 6 PRN (Reason: pain) Qty: 30 0RF Rx Instructions: Ongoing therapy, Dr. Kearney supervising cefadroxil 500 mg capsule 500 mg PO BID Qty: 30 0RF Continued venlafaxine 75 mg Capsule,Extended Release 24hr 75 mg PO HS levothyroxine 125 mcg Tablet 125 mcg PO QAM estradiol 0.01 % (0.1 mg/gram) Cream 1 appful VAGINAL 2XWK diclofenac potassium [Cambia] 50 mg Powder In Packet 50 mg PO DAILY PRN (Reason: Migraine Headache) Rx Instructions: must be taken on empty stomach with water only Held meloxicam 15 mg Tablet 15 mg PO HS Hold Instructions: Resume when done with Celebrex Admission Data Admit Date/Time: 11/14/22 11:34 Attending Provider: Arsen Kearney Admit Provider: Arsen Kearney Primary Care Provider: Floresita Roberts Other Interventions: Discharge Summary Assessment (RN) Last Done: 11/15/22 12:48
== END 2022-11-15 13:35 | disposition home health service (06) ==
LOC: 3E 05:52 → ASU 05:52